=== PATIENT | male | born 1985 | race Two or more races ===

== ENCOUNTER → 2025-05-05 | Outpatient (CLI) | payer OTHER, SELFPAY ==
--- NOTE | 2025-05-05 | XR_ITS ---
Examination: Foot, right, 3 views Technique: AP, oblique, lateral views foot, 3 views Date and time of exam: May 05, 2025 1224 hours INDICATIONS: Twisting injury to the foot today, foot pain. FINDINGS: Acute fracture proximal shaft fifth metatarsal, no significant displacement No foreign body IMPRESSION: Acute fracture proximal shaft fifth metatarsal
== END | disposition home or self-care (01) ==
LOC: CDIM 11:59
DX: S92.351A Displaced fracture of fifth metatarsal bone, right foot, initial encounter for closed fracture (principal); X50.1XXA Overexertion from prolonged static or awkward postures, initial encounter
CPT/HCPCS: 73630